=== PATIENT | female | born 1945 | race Caucasian/White ===

== ENCOUNTER → 2017-05-01 | Outpatient (CLI) | payer MEDICARE ==
[~2017-05-01] MED LIST: ACTOPLUS MET 151 TA2 PO; ALLEGRA-D1 TAB.SR2 PO; AMITRIPTYLINE H50 MG PO; DETROL LA PO; ELMIRON100 MG PO; METFORMIN HCL500 M1 PO; QUINARETIC
--- NOTE | ~2017-05-01 | MY29 ---
[facility] A Service of [facility] & [facility] RADIOLOGY TEXT RESULTS PATIENT: IFEANYI WHITE LOCATION: [facility] : 43 UNIT #: [id number] AGE: [address]: Vanessa Kathleen APRN SEX: F ORDER DR: [id number] [facility] [address] [place], [place] [address] [id number] O MR#: [id number] Acc #: [id number] NAME: IFEANYI WHITE : 1945 SEX: F STUDY DATE/TIME: 05/01/2017 12:08 UNIT: [facility] ROOM: STUDY DESCRIPTION: MY [facility] SCREENING W/ CAD BILAT Attending Physician: Vanessa Kathleen A.P.R.N. Referring Physician: Vanessa Kathleen A.P.R.N. Ordering Physician: Vanessa Kathleen A.P.R.N. Primary Care Physician: Vanessa Kathleen A.P.R.N. MEDICAL IMAGING REPORT This report is preliminary unless electronic signature is present EXAM Digital screening mammogram, 05/01/2017 HISTORY 71-year-old woman, no risk elevation. Prior left breast biopsies. Annual screening. COMPARISON Mammograms date to 08/31/2005 with most recent 03/17/2016. FINDINGS Digital imaging of each breast was completed utilizing screening protocol. Two excisional biopsy markers are placed on the left breast. Review includes FDA-approved CAD device. Breast parenchyma is moderately dense and heterogeneous with several benign calcifications in each breast. I see no dominant mass. There are no suspicious microcalcifications and no architectural deformity. IMPRESSION Benign mammogram. Annual screening recommended. Patients over the age of 40 are entered into a reminder system with target due date for the next mammogram. A result letter will also be sent to the patient. BIRADS: 2 Benign finding Dictated by... Juan M Mercado M.D. THIS IS AN ELECTRONICALLY VERIFIED REPORT [facility] A Service of [facility] RADIOLOGY TEXT RESULTS PATIENT: IFEANYI WHITE LOCATION: [facility] : 43 UNIT #: [id number] AGE: [address]: Vanessa Kathleen APRN SEX: F ORDER DR: Juan M Mercado M.D. at 05/02/2017 8:05 AM BRANDY/nya TD: 05/01/2017 23:01 JOB #: [id number] MEDICAL IMAGING REPORT Page 1 of 1 COPY
== END | disposition home or self-care (01) ==
LOC: CWCC 11:29
DX: Z12.31 Encounter for screening mammogram for malignant neoplasm of breast (principal); Z98.890 Other specified postprocedural states
CPT/HCPCS: G0202

== ENCOUNTER → 2017-05-03 | Outpatient (CLI) | payer MEDICARE ==
--- NOTE | ~2017-05-03 | TH ---
Unit #: [id number] #: [id number] Patient: IFEANYI WHITE [id number] [address] [place], [place] [address] [id number] O MR#: [id number] NAME: IFEANYI WHITE. : 1945 SEX: F STUDY DATE/TIME: 05/03/2017 UNIT: [facility] ROOM: STUDY DESCRIPTION: Attending Physician: Milan Gardiner M.D. Referring Physician: Milan Gardiner M.D. Primary Care Physician: Vanessa Kathleen A.P.R.N. CARDIOLOGY REPORT EXAM Stress nuclear and ECG combined. INDICATION Chest pain radiating to the back, waking her up, sharp pains, hypertension, dyslipidemia, and diabetes. SUMMARY The patient was given Lexiscan intravenously while at rest, as well as technetium 99m Cardiolite 10.73 and 33.4 mCi at rest and stress, respectively. Appropriate views were obtained. FINDINGS Patient experienced lightheadedness during the test. The patient's heart rate increased from 104 to 125, and blood pressure decreased from 169/73 to 150/77. Patient experienced lightheadedness but no chest pain. The rest and stress ECG both showed incomplete left bundle branch block with secondary ST changes primarily seen in leads I, AVL, and V6. With stress, there were no diagnostic ST shifts, no dysrhythmias, and no heart block. Perfusion images demonstrate normal perfusion throughout the myocardium both at rest and stress. There is apical thinning, diaphragmatic artifact, and intestinal artifact present. Planar images demonstrate no significant patient motion either at rest or stress. There is no increased lung uptake or LV or RV enlargement. End-diastolic volume is 80 mL, and ejection fraction quantitatively is 44%. Qualitatively it appears to be in the 45% to 50% range. Summed stress score is 9, and summed difference score is 3. IMPRESSION 1. Normal size ventricle with reduced ejection fraction. Echocardiogram correlation needed. 2. No significant ischemia despite the sum of stress scores. 3. Lexiscan stress ECG shows no definite ischemia. Minimal changes as noted above likely reflect the incomplete left bundle branch block. 1. Dictated by... Aron Doss M.D. Edel TD: 05/03/2017 17:03 JOB #: [id number] Unit #: [id number] #: [id number] Patient: IFEANYI WHITE CARDIOLOGY REPORT Page 1 of 1 X Aron Doss MD CARDIOLOGY REPORT
== END | disposition home or self-care (01) ==
LOC: CNUC 08:56
DX: R07.89 Other chest pain (principal)
CPT/HCPCS: 78452; 93017; 93306; A9500; J2785